=== PATIENT | female | born 1950 | race Hispanic/Latino ===

== ENCOUNTER 2018-07-28 18:13 | Inpatient (IN) | payer MEDICARE ==
[2018-07-28 18:14] VITALS: BMI 27.1
[2018-07-28] MEDS ORDERED: Sodium Chloride 0.9% 1,000 ML IV STA (19:45)
--- NOTE | 2018-07-28 19:46 | ED PDOC ---
Arrival/HPI - General Chief Complaint: Abdominal Pain Time Seen by Provider: 07/28/18 19:22 Historian: Patient - History of Present Illness Narrative History of Present Illness (Text): 07/28/18 19:34 67 year old female, with past medical history of colitis and GERD, presents to the Emergency Department complaining of upper abdominal discomfort since this morning. Patient informs gradual onset of symptoms after eating a bagel and has been non-radiating and constant since then.Patient denies associated nausea but denies any vomiting, fever or chills. Patient denies any chest pain, shortness of breath, neck pain, back pain, headache, dizziness, or any other complaints. Time/Duration: 4-6 hours Symptom Course: Unchanged Quality: Aching Activities at Onset: Eating Context: Home Past Medical History - Provider Review Nursing Documentation Reviewed: Yes - Infectious Disease Hx of Infectious Diseases: None - Reproductive Menopause: Yes - Cardiac Hx Cardiac Disorders: No Hx Pacemaker: No - Pulmonary Hx Asthma: Yes - Neurological Hx Paralysis: No - Hematological/Oncological Hx Blood Transfusions: No - Musculoskeletal/Rheumatological Hx Arthritis: Yes - Gastrointestinal Hx Gastroesophageal Reflux: Yes - Psychiatric Hx Emotional Abuse: No Hx Physical Abuse: No Hx Substance Use: No - Anesthesia Hx Anesthesia Reactions: No Hx Malignant Hyperthermia: No - Suicidal Assessment Feels Threatened In Home Enviroment: No Family/Social History - Physician Review Nursing Documentation Reviewed: Yes Family/Social History: No Known Family HX Smoking Status: Unknown If Ever Smoked Hx Alcohol Use: No Hx Substance Use: No Hx Substance Use Treatment: No Allergies/Home Meds Allergies/Adverse Reactions: Allergies No Known Allergies Allergy (Verified 05/19/12 13:43) Home Medications: Home Meds Medication Instructions Recorded Confirmed Montelukast [Singulair] 10 mg PO QPM 05/19/12 07/28/18 Alprazolam [Xanax] 0.5 mg PO BID 02/28/17 07/28/18 Dexlansoprazole [Dexilant] 60 mg PO DAILY 02/28/17 07/28/18 Fluticasone/Salmeterol 250/50 1 puff IH Q12 02/28/17 02/28/17 [Advair Diskus] Metoprolol Tartrate [Lopressor] 50 mg PO DAILY 02/28/17 07/28/18 Review of Systems - Physician Review All systems were reviewed & negative as marked: Yes - Review of Systems Constitutional: absent: Fevers Respiratory: absent: SOB, Cough Cardiovascular: absent: Chest Pain, BOYCE Gastrointestinal: Abdominal Pain, Nausea. absent: Diarrhea, Vomiting Musculoskeletal: absent: Back Pain, Neck Pain Neurological: absent: Headache, Dizziness Physical Exam Vital Signs Reviewed: Yes Vital Signs Temp Pulse Resp BP Pulse Ox 07/28/18 18:58 97.8 F 80 18 135/73 99 Temperature: Afebrile Blood Pressure: Normal Pulse: Regular Respiratory Rate: Normal Appearance: Positive for: Well-Appearing, Non-Toxic, Comfortable Pain Distress: None Mental Status: Positive for: Alert and Oriented X 3 - Systems Exam Head: Present: Atraumatic, Normocephalic Pupils: Present: PERRL Extroacular Muscles: Present: EOMI Conjunctiva: Present: Normal Mouth: Present: Moist Mucous Membranes Neck: Present: Normal Range of Motion Respiratory/Chest: Present: Clear to Auscultation, Good Air Exchange. No: Respiratory Distress, Accessory Muscle Use Cardiovascular: Present: Regular Rate and Rhythm, Normal S1, S2. No: Murmurs Abdomen: No: Tenderness, Distention, Peritoneal Signs Back: Present: Normal Inspection Upper Extremity: Present: Normal Inspection. No: Cyanosis, Edema Lower Extremity: Present: Normal Inspection. No: Edema Neurological: Present: GCS=15, CN II-XII Intact, Speech Normal Skin: Present: Warm, Dry, Normal Color. No: Rashes Psychiatric: Present: Alert, Oriented x 3, Normal Insight, Normal Concentration Medical Decision Making ED Course and Treatment: 07/28/18 19:34 Impression: 67 year old female presents to the Emergency Department complaining of upper abdominal discomfort. Plan: -- EKG -- Labs -- Chest X-ray -- Reassess and disposition Prior Visits: Notes and results from previous visits were reviewed. Progress Notes: Reviewed EKG, NSR at 74 bpm. Inferior infarct. No acute changes. 07/28/18 21:05 Chest X-Ray reviewed, shows no acute processes. 07/28/18 23:25 US Gallbladder and Pancreas Impression: No acute findings. Fatty infiltration of the liver. 07/29/18 02:16 CT Abdomen and Pelvis Impression: Left lower lobe airspace disease, most probably pneumonia. Terminal ileitis without perforation or pneumatosis intestinalis. Narrowing of the lumen of the terminal ileum secondary to inflammatory neutral changes. Associated secondary partial small bowel obstruction and/or ileus with dilated fluid filled small bowel to the right lower quadrant. Minimal amount of reactive free fluid in the pelvis. 07/29/18 02:[address] Lewis, who is aware and agrees with plan. Accepts pt in to his service. Pt will be admitted to [facility] for partial small bowel obstruction, ileitis. Requests Dr. Portillo on consult. vice president mission integration notified. - Lab Interpretations I have reviewed the lab results: Yes - RAD Interpretation Radiology Orders: 07/28/18 19:34 CHEST PORTABLE [RAD] Stat Intelligence Operations Specialist: ED Physician, Radiologist - EKG Interpretation Interpreted by ED Physician: Yes Type: 12 lead EKG - Scribe Statement The provider has reviewed the documentation as recorded by the Scribe Ting Bledsoe. All medical record entries made by the Scribe were at my direction and personally dictated by me. I have reviewed the chart and agree that the record accurately reflects my personal performance of the history, physical exam, medical decision making, and the department course for this patient. I have also personally directed, reviewed, and agree with the discharge instructions and disposition. Disposition/Present on Arrival - Present on Arrival Any Indicators Present on Arrival: No History of DVT/PE: No History of Uncontrolled Diabetes: No Urinary Catheter: No History of Decub. Ulcer: No History Surgical Site Infection Following: None - Disposition Have Diagnosis and Disposition been Completed?: Yes Diagnosis: Partial small bowel obstruction, Ileitis Disposition: HOSPITALIZED Disposition Time: 02:35 Patient Plan: Admission Condition: STABLE Forms: [employer] ([place])
[2018-07-28 20:47] LABS: HEMOGLOBIN 9.8 g/dL (12.0-16.0); MEAN CELL VOLUME 90.3 fl (80.0-105.0); MEAN PLATELET VOLUME 8.8 fl (7.0-11.0); RBC 3.5 10^6/uL (3.5-6.1); RED CELL DISTRIBUTION WIDTH 14.3 % (11.5-14.5); WHITE BLOOD COUNT 13.5 10^3/ul (4.5-11.0)
[2018-07-28 21:00] LABS: ALB/GLOB RATIO 1.1 (1.1-1.8); ALBUMIN 4.1 g/dL (3.0-4.8); ALT/SGPT 21 U/L (7-56); AST/SGOT 34 U/L (14-36); BLOOD UREA NITROGEN 14 mg/dL (7-21); CALCIUM 9.3 mg/dL (8.4-10.5); GFR NON-AFRICAN AMERICAN > 60; LIPASE 59 U/L (23-300)
[2018-07-29] MEDS ORDERED: Iohexol 350 MG/100 ML VIAL ONE (00:10)
[2018-07-29] MEDS ORDERED: Sodium Chloride 0.9% 1,000 ML IV SCH (00:15)
[2018-07-29] MEDS ORDERED: metroNIDAZOLE IV 500 mg/100 ml 500 MG/100 ML BAG IVPB STA (02:30)
[2018-07-29] MEDS ORDERED: cefTRIAXone 1 gm 1 GM/100 ML BAG IV STA (02:30)
[2018-07-29] MEDS ORDERED: Sodium Chloride 0.9% 1,000 ML IV STA (02:33)
--- NOTE | 2018-07-29 03:58 | CP.PCM.HP ---
History of Present Illness - History of Present Illness History of Present Illness: Juan Teixeira, PGY-1 History and Physical for Dr Joshua Del Valle CC: Abdominal Pain HPI: Ms Thorne is a 67 F with a PMHx of colitis, GERD, Arthritis and asthma who presents with epigastric abdominal pain. Patient describes this as crampy spasms that began after eating a bagel at 11 am yesterday. Patient has noted weakness and a poor appetite over last few weeks, but thought it would pass on its own. Patient notices occasional bloating, which she uses OTC medications for relief. Patient endorses that she gets an endoscopy and colonoscopy every 3 years as her mother had colon cancer. Patient denies fever, chills, shortness of breath, chest pain, headaches, dizziness, nausea, vomiting, recent travel, sick contacts or recent unintentional weight loss. PMHx: colitis, GERD, Arthritis and asthma PSHX: deviated septum repair All: NKDA Social: dnies ETOH tobacco and substance abuse Fam hx: mom had colon CA Meds: Dexilent 60 mg, Lopressor 50 mg, Singulair, Xanax 0.5, Flovent and Ventolin. Present on Admission - Present on Admission Any Indicators Present on Admission: No Review of Systems - Review of Systems Review of Systems: 12 point ROS completed and negative as described in HPI. Past Patient History - Infectious Disease Hx of Infectious Diseases: None - Past Social History Smoking Status: Unknown If Ever Smoked - CARDIAC Hx Cardiac Disorders: No Hx Pacemaker: No - PULMONARY Hx Asthma: Yes - NEUROLOGICAL Hx Paralysis: No - HEMATOLOGICAL/ONCOLOGICAL Hx Blood Transfusions: No - MUSCULOSKELETAL/RHEUMATOLOGICAL Hx Arthritis: Yes - GASTROINTESTINAL Hx Gastroesophageal Reflux: Yes - PSYCHIATRIC Hx Emotional Abuse: No Hx Physical Abuse: No Hx Substance Use: No - SURGICAL HISTORY Hx Surgeries: Yes - ANESTHESIA Hx Anesthesia Reactions: No Hx Malignant Hyperthermia: No Meds Allergies/Adverse Reactions: Allergies Allergy/AdvReac Type Severity Reaction Status Date / Time No Known Allergies Allergy Verified 05/19/12 13:43 Physical Exam - Constitutional Appears: Well, Non-toxic, No Acute Distress - Head Exam Head Exam: ATRAUMATIC, NORMAL INSPECTION, NORMOCEPHALIC - Eye Exam Eye Exam: EOMI, Normal appearance Pupil Exam: PERRL - ENT Exam ENT Exam: Mucous Membranes Moist - Neck Exam Neck exam: Positive for: Normal Inspection - Respiratory Exam Respiratory Exam: Clear to Auscultation Bilateral, NORMAL BREATHING PATTERN. absent: Rales, Rhonchi, Wheezes - Cardiovascular Exam Cardiovascular Exam: REGULAR RHYTHM, +S1, +S2 - GI/Abdominal Exam GI & Abdominal Exam: Hypoactive Bowel Sounds, Soft. absent: Distended, Tenderness - Back Exam Back exam: absent: CVA tenderness (L), CVA tenderness (R) - Neurological Exam Neurological exam: Alert, Oriented x3 - Psychiatric Exam Psychiatric exam: Normal Affect, Normal Mood - Skin Skin Exam: Dry, Erythema, Normal Color, Warm Results - Vital Signs Recent Vital Signs: Last Vital Signs Temp 97.7 F 07/29/18 03:03 Pulse 84 07/29/18 03:03 Resp 18 07/29/18 03:03 BP 104/53 L 07/29/18 03:03 Pulse Ox 95 07/29/18 03:03 - Labs Result Diagrams: 07/28/18 20:25 07/28/18 20:25 Labs: Laboratory Results - last 24 hr 07/28/18 07/28/18 20:25 20:25 WBC 13.5 H D RBC 3.50 Hgb 9.8 L Hct 31.6 L MCV 90.3 MCH 28.0 MCHC 31.0 RDW 14.3 Plt Count 496 H MPV 8.8 Sodium 144 Potassium 4.1 Chloride 106 Carbon Dioxide 28 Anion Gap 14 BUN 14 Creatinine 0.8 Est GFR ( Amer) > 60 Est GFR (Non-Af Amer) > 60 Random Glucose 109 Calcium 9.3 Total Bilirubin 0.3 AST 34 ALT 21 Alkaline Phosphatase 89 Total Protein 7.7 Albumin 4.1 Globulin 3.6 Albumin/Globulin Ratio 1.1 Lipase 59 Assessment & Plan - Assessment and Plan (Free Text) Assessment: 67 year old female with PMHx of arthritis, GERD, colitis and asthma who pres ents with partial small bowel obstruction and ileitis. Plan: Small Bowel Obstruction partial, not full GI consult placed - Dr. Lewis - recommendations appreciated Gen Surgery consult placed- Dr. Reyes- recommendations appreciated IVF LR@ 75 cc/hr IV Protonix, Reglan and Zofran Cefepime 100 BID IVP and FLagyl 500 mg q8h IVP f/u AM labs f/u obstructive series f/u blood cultures Reviewed EKG, NSR at 74 bpm. Inferior infarct. No acute changes. Chest X-Ray reviewed, shows no acute processes. US Gallbladder and Pancreas Impression: No acute findings. Fatty infiltration of the liver. CT Abdomen and Pelvis Impression: Left lower lobe airspace disease, most probably pneumonia. Terminal ileitis without perforation or pneumatosis intestinalis. Narrowing of the lumen of the terminal ileum secondary to inflammatory neutral changes. Associated secondary partial small bowel obstruction and/or ileus with dilated fluid filled small bowel to the right lower quadrant. Minimal amount of reactive free fluid in the pelvis. Asthma: c/w Brovana, Montelukast and pulmicort GI/DVT ppx: Protonix 40 mg IV SCDs Case discussed and plan reviewed with Dr. Lewis, attending. Juan Teixeira, PGY-1
--- NOTE | 2018-07-29 04:14 | CP.PCM.CON ---
History of Present Illness - History of Present Illness History of Present Illness: General Surgery consult note for Dr. Reyes consulted for Small bowel Obstruction HPI: Patient is a 67 yr old female with pmh arthritis, colitis and asthma who presented to [facility] on 07/28 c/o mild nausea (no vomiting), crampy abdominal pain and decreased appetite after eating a bagel at 11 am that morning. Patient states that her last BM was 07/28 in the am prior to the bagel and was normal with no blood or loose stool. She denies ever having had emesis since the symptoms began. Patient has a family history of colon cancer in her mother and therefore gets a colonoscopy every three years for cancer screening. Her last colonoscopy was 3 years ago and was normal. Patient otherwise denies PAL, nausea, vomiting, Fevers, chills, SOB, dysuria, extremity pain. PMHx: colitis, GERD, Arthritis and asthma PSHX: deviated nasal septum repair All: NKDA Social: denies ETOH tobacco and substance abuse Fam hx: colon CA (mother) Meds: Dexilent 60 mg, Lopressor 50 mg, Singulair, Xanax 0.5, Flovent and Ventolin. Review of Systems - Review of Systems All systems: reviewed and no additional remarkable complaints except (as per HPI) Past Patient History - Infectious Disease Hx of Infectious Diseases: None - Past Social History Smoking Status: Unknown If Ever Smoked - CARDIAC Hx Cardiac Disorders: No Hx Pacemaker: No - PULMONARY Hx Asthma: Yes - NEUROLOGICAL Hx Paralysis: No - HEMATOLOGICAL/ONCOLOGICAL Hx Blood Transfusions: No - MUSCULOSKELETAL/RHEUMATOLOGICAL Hx Arthritis: Yes - GASTROINTESTINAL Hx Gastroesophageal Reflux: Yes - PSYCHIATRIC Hx Emotional Abuse: No Hx Physical Abuse: No Hx Substance Use: No - SURGICAL HISTORY Hx Surgeries: Yes - ANESTHESIA Hx Anesthesia Reactions: No Hx Malignant Hyperthermia: No Meds Allergies/Adverse Reactions: Allergies Allergy/AdvReac Type Severity Reaction Status Date / Time No Known Allergies Allergy Verified 05/19/12 13:43 - Medications Medications: Current Medications Arformoterol Tartrate (Brovana) 15 mcg IH [id number] KYAW Budesonide (Pulmicort Respules) 0.5 mg IH [id number] Lactated Ringer's (Lactated Ringer's) 1,000 mls @ 75 mls/hr IV [id number] KYAW Metronidazole (Flagyl) 500 mg in 100 mls @ 100 mls/hr IVPB Q8 KYAW; Protocol Cefepime HCl (Maxipime 1gm) 1 gm in 100 mls @ 100 mls/hr IVPB Q12 KYAW; Protocol Metoclopramide HCl (Reglan) 10 mg IVP ACHS KYAW Montelukast Sodium (Singulair) 10 mg PO QPM KYAW Ondansetron HCl (Zofran Inj) 4 mg IVP Q8H PRN PRN Reason: Nausea/Vomiting Pantoprazole Sodium (Protonix Inj) 40 mg IVP DAILY KYAW Physical Exam - Constitutional Appears: Well, Non-toxic, No Acute Distress - Head Exam Head Exam: ATRAUMATIC, NORMOCEPHALIC - Eye Exam Eye Exam: EOMI - ENT Exam ENT Exam: Mucous Membranes Moist - Respiratory Exam Respiratory Exam: NORMAL BREATHING PATTERN - Cardiovascular Exam Cardiovascular Exam: REGULAR RHYTHM - GI/Abdominal Exam GI & Abdominal Exam: Soft, Tenderness (mild tenderness with no guarding RLQ). absent: Distended, Firm, Guarding, Rigid - Extremities Exam Extremities exam: Positive for: pedal pulses present. Negative for: calf tenderness, pedal edema, tenderness - Neurological Exam Neurological exam: Alert, Oriented x3 - Psychiatric Exam Psychiatric exam: Normal Affect, Normal Mood - Skin Skin Exam: Dry, Intact, Normal Color, Warm Results - Vital Signs Recent Vital Signs: Last Vital Signs Temp 97.7 F 07/29/18 03:03 Pulse 84 07/29/18 03:03 Resp 18 07/29/18 03:03 BP 104/53 L 07/29/18 03:03 Pulse Ox 95 07/29/18 03:03 - Labs Result Diagrams: 07/30/18 06:40 07/30/18 06:40 Labs: Laboratory Results - last 24 hr 07/28/18 07/28/18 20:25 20:25 WBC 13.5 H D RBC 3.50 Hgb 9.8 L Hct 31.6 L MCV 90.3 MCH 28.0 MCHC 31.0 RDW 14.3 Plt Count 496 H MPV 8.8 Sodium 144 Potassium 4.1 Chloride 106 Carbon Dioxide 28 Anion Gap 14 BUN 14 Creatinine 0.8 Est GFR ( Amer) > 60 Est GFR (Non-Af Amer) > 60 Random Glucose 109 Calcium 9.3 Total Bilirubin 0.3 AST 34 ALT 21 Alkaline Phosphatase 89 Total Protein 7.7 Albumin 4.1 Globulin 3.6 Albumin/Globulin Ratio 1.1 Lipase 59 Assessment & Plan - Assessment and Plan (Free Text) Assessment: 67 yr old female w/ Small Bowel Obstruction Plan: Partial small Bowel obstruction: * c/w IV fluid resuscitation * c/w antibiotics * NPO except meds * patient refusing NGT at this time will revisit if she becomes nauseous or has emesis * FOBT ordered * GI Dr. Lewis consulted recs appreciated Prophylaxis * pepcid * scd's Discussed with Dr. Ho, Tia Dailey, PGY 1 - Date & Time Date: 07/29/18 Time: 04:12
[2018-07-29] MEDS: Lactated Ringer's 1,000 ML IV SCH (04:19)
[2018-07-29] MEDS ORDERED: Influenza Vaccine 60 mcg/0.5 mL SYR (4YR UP) IM ONE (04:31)
[2018-07-29] MEDS ORDERED: Pneumococcal 23-Valent Vaccine IM ONE (04:31)
[2018-07-29] MEDS: metroNIDAZOLE IV 500 mg/100 ml 500 MG/100 ML BAG IVPB SCH ×3 (06:35→22:36)
[2018-07-29 07:07] LABS: BASO # 0.03 K/mm3 (0.0-2.0); BASO % 0.3 % (0.0-3.0); EOS # 0.1 (0.0-0.7); EOS % 1.1 % (1.5-5.0); GRAN # 6.94 (1.4-6.5); GRAN % 71.7 % (50.0-68.0); HEMOGLOBIN 8.6 g/dL (12.0-16.0); LYMPH # 1.5 (1.2-3.4); LYMPH % 15.5 % (22.0-35.0); MEAN CELL VOLUME 89.4 fl (80.0-105.0); MEAN CORPUSCULAR HEMOGLOBIN 28.4 pg (25.0-35.0); MEAN CORPUSCULAR HGB CONC 31.7 g/dl (31.0-37.0); MEAN PLATELET VOLUME 8.7 fl (7.0-11.0); MONO # 1.1 (0.1-0.6); MONO % 11.4 % (1.0-6.0); RBC 3.03 10^6/uL (3.5-6.1); RED CELL DISTRIBUTION WIDTH 14.3 % (11.5-14.5); WHITE BLOOD COUNT 9.7 10^3/ul (4.5-11.0)
[2018-07-29] MEDS: Budesonide 0.5 mg/2 ml Inhal Susp UD IH SCH ×2 (07:20→21:00)
[2018-07-29] MEDS: Arformoterol 15 mcg/2 ml Inh Sol IH SCH ×2 (07:20→21:00)
[2018-07-29 07:36] LABS: ALBUMIN 3.2 g/dL (3.0-4.8); ALT/SGPT 28 U/L (7-56); AST/SGOT 30 U/L (14-36); BLOOD UREA NITROGEN 12 mg/dL (7-21); CALCIUM 8.4 mg/dL (8.4-10.5); GFR NON-AFRICAN AMERICAN > 60
[2018-07-29] MEDS ORDERED: Levalbuterol 1.25 MG/3 ML Inhal Soln UD IH SCH (08:00)
--- NOTE | 2018-07-29 08:20 | RAD ---
Date of service: 07/28/2018 HISTORY: abdominal discomfort COMPARISON: 01/28/2017 FINDINGS: LUNGS: No active pulmonary disease. PLEURA: No significant pleural effusion identified, no pneumothorax apparent. CARDIOVASCULAR: Normal. OSSEOUS STRUCTURES: No significant abnormalities. VISUALIZED UPPER ABDOMEN: Normal. OTHER FINDINGS: None. IMPRESSION: No active disease.
[2018-07-29 08:49] LABS: INR 1.03; PARTIAL THROMBOPLASTIN TIME 27.1 Seconds (25.1-36.5); PROTHROMBIN TIME 11.8 SECONDS (9.4-12.5)
[2018-07-29 08:56] LABS: HDL CHOLESTEROL 31 mg/dL (29-60); IRON 49 ug/dL (45-180)
[2018-07-29 09:05] LABS: % IRON SATURATION 12 % (20-55); TOTAL IRON BINDING CAPACITY 416 ug/dL (265-497)
[2018-07-29 09:07] LABS: LDL CHOLESTEROL 95 mg/dL (0-129)
[2018-07-29 09:16] LABS: FREE T4 0.91 ng/dL (0.78-2.19)
[2018-07-29] MEDS: Cefepime 1gm in NS 100ml 1 GM/100 ML BAG IVPB SCH ×2 (09:20→22:35)
--- NOTE | 2018-07-29 09:26 | RAD ---
Date of service: 07/29/2018 HISTORY: SBO COMPARISON: No prior. FINDINGS: BOWEL: Normal. No obstruction. No free air. BONES: Normal. OTHER FINDINGS: None. IMPRESSION: No active disease.
[2018-07-29 09:29] LABS: T3 1.41 ng/mL (0.97-1.69)
--- NOTE | 2018-07-29 09:39 | US ---
Date of service: 07/28/2018 HISTORY: upper abdominal pain COMPARISON: None. TECHNIQUE: Grayscale imaging of the right upper quadrant was performed. FINDINGS: LIVER: Measures 15.7 cm in length. There is diffuse increased echogenicity of the liver parenchyma. No mass. No intrahepatic bile duct dilatation. GALLBLADDER: There are no gallstones, wall thickening or pericholecystic fluid. The sonographic Rosenbaum's sign is negative. COMMON BILE DUCT: Measures 5.6 mm. No stones. No dilatation. PANCREAS: Unremarkable as visualized. No mass. No ductal dilatation. RIGHT KIDNEY: Measures 10.1 cm in length. Normal echogenicity. No calculus, mass, or hydronephrosis. AORTA: No aneurysmal dilatation. IVC: Unremarkable. OTHER FINDINGS: None . IMPRESSION: Diffuse increased echogenicity in the liver may reflect hepatic steatosis however parenchymal infectious/ inflammatory etiologies cannot be entirely excluded. Clinical and laboratory correlation is advised. No evidence of cholelithiasis or biliary dilatation. A preliminary report was provided by [employer].
--- NOTE | 2018-07-29 09:53 | CT ---
Date of service: 07/29/2018 PROCEDURE: CT Abdomen and Pelvis with contrast HISTORY: abdominal pain COMPARISON: None. TECHNIQUE: Contrast dose: 100 cc of Omni 350 Radiation dose: Total exam DLP = 692 mGy-cm. This CT exam was performed using one or more of the following dose reduction techniques: Automated exposure control, adjustment of the mA and/or kV according to patient size, and/or use of iterative reconstruction technique. FINDINGS: LOWER THORAX: There is an alveolar infiltrate in the left lower lobe consistent with pneumonia LIVER: Unremarkable. No gross lesion or ductal dilatation. GALLBLADDER AND BILE DUCTS: Unremarkable. PANCREAS: Unremarkable. No gross lesion or ductal dilatation. SPLEEN: Unremarkable. ADRENALS: Unremarkable. No mass. KIDNEYS AND URETERS: Unremarkable. No hydronephrosis. No solid mass. VASCULATURE: Unremarkable. No aortic aneurysm. BOWEL: There is mural thickening and enhancement in the terminal ileum consistent with inflammatory bowel disease such as Crohn's disease. There is also mild dilatation of the distal small bowel which is filled with fluid. There is also fluid in the colon. APPENDIX: Normal appendix. PERITONEUM: Unremarkable. No free fluid. No free air. LYMPH NODES: Unremarkable. No enlarged lymph nodes. BLADDER: Unremarkable. REPRODUCTIVE: Unremarkable. BONES: No acute fracture. OTHER FINDINGS: The report concurs with the preliminary [facility] report IMPRESSION: There is mural thickening and enhancement in the terminal ileum consistent with inflammatory bowel disease such as Crohn's disease. There is also mild dilatation of the distal small bowel which is filled with fluid. There is also fluid in the colon. Left lower lobe pneumonia
[2018-07-29] MEDS ORDERED: Fluticasone-Salmeterol 250-50mcg Diskus IH SCH (10:00)
--- NOTE | 2018-07-29 10:01 | CT ---
Date of service: 07/29/2018 PROCEDURE: CT Chest without contrast HISTORY: PNEUMONIA COMPARISON: None available. TECHNIQUE: Contiguous axial images were obtained through the chest without intravenous contrast enhancement. Sagittal and coronal reconstructions were performed. Radiation dose (DLP): 294 mGy-cm. This CT exam was performed using one or more of the following dose reduction techniques: Automated exposure control, adjustment of the mA and/or kV according to patient size, and/or use of iterative reconstruction technique. FINDINGS: LUNGS: There is an alveolar infiltrate at the left lung base posteriorly consistent with pneumonia. The remaining lung peñaloza are clear. There is some apical pleural parenchymal scarring MEDIASTINUM: Unremarkable thoracic aorta. No aneurysm. Normal sized heart. Main pulmonary artery unremarkable. No vascular congestion. No lymphadenopathy. Moderate coronary artery calcification PLEURA: No pleural fluid. No pneumothorax. BONES: No fracture. No destructive lesion. UPPER ABDOMEN: Grossly unremarkable. OTHER FINDINGS: None. IMPRESSION: There is an alveolar infiltrate at the left lung base posteriorly consistent with pneumonia. The remaining lung peñaloza are clear. There is some apical pleural parenchymal scarring
--- NOTE | 2018-07-29 10:03 | CON ---
DATE: 07/29/2018 HISTORY OF PRESENT ILLNESS: I saw Mrs. Thorne this morning. 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 The patient noted acute onset of upper abdominal discomfort with abdominal swelling several hours prior to admission. The patient had been doing fine with no major issues prior to symptom onset. There is no hematemesis or rectal bleeding. PHYSICAL EXAMINATION: VITAL SIGNS: I reviewed this patient's vital signs. HEENT: Significant for dry mouth. LUNGS: Clear to auscultation, apical. Decreased breath sounds, basilar. HEART: Regular rhythm. ABDOMEN: Mildly distended. She is tender in the epigastric area as well as the area of the right paraumbilical and somewhat in the area of the right lower quadrant as well. The left lower quadrant is mildly tender as well. The bowel sounds are irregular. LABORATORY DATA: I reviewed this patient's gallbladder ultrasound, was noncontributory with a normal common bile duct. Abdominal CT scan shows evidence of substantial amount of stool in the ascending colon and proximal transverse. There is evidence of some airspace disease in the left lower lobe of the lung. There appears to be some distal small bowel inflammatory changes plus what appears to be an ileus in the area of the right lower quadrant. I reviewed this patient's laboratory data, significant for 13,000 white count, and H and H. platelet count of 186. CMP noncontributory. OVERALL ASSESSMENT: A 67-year-old white female with history of colitis, currently off of therapy, previously which consisted of Lialda. The patient also has a history of acid reflux. Current complaints included acute onset of epigastric and some periumbilical pain with swallowing, acute onset. Review of radiology data indicates probable ileus, possibly due to significant stool in the ascending colon and transverse with possibly component of distal small bowel inflammatory disease. At bedside this morning, the patient feels more comfortable than on admission. She is currently on antibiotic therapy, which includes metronidazole and cefepime plus ondansetron. The patient will be evaluated by Surgery later on this morning as well as Dr. Lewis. David Lewis DO, PhD CHIARA
--- NOTE | 2018-07-29 11:52 | CARD ---
APPROVED REPORT Date of service: 07/28/2018 EKG Measurement Heart [id number] <Conclusion> Normal sinus rhythm Inferior infarct, age undetermined Abnormal ECG
[2018-07-29 12:23] LABS: FERRITIN 8.6 ng/mL
[2018-07-29 12:53] LABS: FOLATE > 20.0 ng/mL
[2018-07-29] MEDS: Levalbuterol 0.63 MG/3 ML Inhal Soln UD IH SCH ×3 (13:27→21:00)
--- NOTE | 2018-07-29 19:15 | HP ---
HISTORY OF PRESENT ILLNESS: The patient is a 67-year-old female who presented to the emergency room in the overnight hours from 07/28/2018, presented as a walk-in patient with complaining of abdominal pain since less than 24 hours. The patient denies any nausea or vomiting. The patient denies similar symptoms before. The patient denies any travel history. According to the ER physician evaluation, the patient complained of about upper abdominal and mid abdominal discomfort for the less than 24 hours, but more than 12 hours. The patient states that the symptoms started after eating a bagel and has been nonradiating and it is constant. The patient denies any vomiting, denies any nausea, denies any hemoptysis, denies any melena, denies any hematochezia. REVIEW OF SYSTEMS: A 13-system review was done, pertinent positive and negative dictated above. CODE STATUS: Full code. LIVING WILL ADVANCE DIRECTIVE: None. ALLERGIES: NONE. Height is 5 feet 7 inches. Weight is 165 pounds. Body mass index is 26. HOME MEDICATIONS: Singulair 10 mg, Lopressor 50 mg, DEXILANT 60 mg, Xanax 0.5 b.i.d., and Advair Diskus. SOCIAL HISTORY: The patient's substance abuse history according to the [employer] is negative for substance abuse, negative for alcohol, negative for smoking at present, probably positive for former smoker. MENSTRUAL HISTORY: Postmenopausal. PAST MEDICAL AND SURGICAL HISTORY: History of questionable COPD, history of hypertension, history of anxiety, history of questionable Crohn disease according to the patient's, history of endoscopy and colonoscopy done according to the patient, history of mild anemia. Past medical history is also significant for normal stress test done in 2016. Past medical history is also significant for osteopenia versus early osteoporosis. Past medical history is also significant for history of nonspecific colitis, history of questionable Crohn disease, history of colonoscopy done in 2014. History of gastritis, gastroesophageal reflux, gastric erosion, and questionable gastric ulcer. The patient's past medical history is also significant for arthritis, history of anxiety, history of questionable asthma versus chronic obstructive pulmonary disease. FAMILY HISTORY: Not available. OCCUPATIONAL HISTORY: The patient is not working and unemployed. Patient is seen in room 376. PHYSICAL EXAMINATION: VITAL SIGNS: T-max 97.8; heart rate 72, 85; blood pressure 125/73, 132/92, 104/53, 109/59; respirations 20; O2 sat 97% to 98%. HEENT: Head: Normocephalic, atraumatic. Pale conjunctivae. Skin appears to be pale. No oropharyngeal lesion. NECK: No neck rigidity. CHEST: Kyphosis. LUNGS: Show occasional rhonchi in the upper lung peñaloza anteriorly. CARDIOVASCULAR: S1 and S2, regular rhythm. Questionable soft systolic murmur in the left sternal border, right second intercostal space, and left second intercostal space. ABDOMEN: Soft. Positive bowel sounds. Mild epigastric periumbilical tenderness noted. No rebound tenderness noted. No costovertebral angle tenderness noted. GENITALIA: Female. RECTAL: Deferred. EXTREMITIES: Show no pitting edema, no calf tenderness, no Homans sign. MUSCULOSKELETAL: Sows a body mass index of 26. NEUROLOGIC: The patient is alert, awake, and oriented x3. Cranial nerves II through XII intact. Gait examination is not tested. No deficits noted. VASCULAR: Palpable pulses. DIAGNOSTIC DATA: Since admission was noted. WBC 13.5 and 9.7, hemoglobin and hematocrit 9.8 5.23 1.6 dropping to 8.6 and 27.1, platelets are 496 and 403. Granulocytes, 72% segs. PT/PTT normal 11.8 and 27.1. Chemistry is significant for CMP, LFTs are within normal limit. Iron saturation is low at 12. LFTs are normal. Cholesterol 148, LDL 95, HDL 31. TSH is elevated at 5.78. The patient was seen in the emergency room and the patient was evaluated in the emergency room by the ER physician. The was evaluated in the emergency room. The patient had a chest x-ray done and a CT abdomen and pelvis. Gallbladder ultrasound done, which was reviewed. The patient had a CT of the chest done, which was reviewed. The patient's gallbladder ultrasound, CT abdomen and pelvis, chest x-ray, CT scan of the chest, all reviewed. EKG was done in the emergency room, which is reviewed. IMPRESSION: 1. Abdominal pain, etiology undetermined. 2. Partial small bowel obstruction and ileitis. 3. Possible hepatic steatosis. 4. Mild hepatomegaly. 5. Left lower lobe alveolar infiltrate and pneumonia. 6. Terminal ileal mural thickening consistent with inflammatory bowel disease, possibly Crohn disease with mild dilatation of the distal small bowel filled with fluid and colonic fluid. 7. Left lower lobe pneumonia with apical pleural parenchymal scarring. 8. Possible abnormal EKG with age indeterminate inferior infarct. 9. History of colitis and gastroesophageal reflux. 10. History of being treated Lialda as per Gastroenterology. 11. Normocytic anemia. 12. Granulocytosis. 13. Questionable and possible hypothyroidism. PLAN: At this time, the patient has been ordered iron studies, serial labs. The patient has been requested Gastroenterology and Surgical consultation. The patient will be ordered transfusion of at least 1 unit of PRBC since her hemoglobin has dropped from her baseline hemoglobin. The patient is to be continued on nebulizer medications. The patient is on empiric IV antibiotic, Flagyl 500 IV every 8 hours, lactated Ringer IV fluid 75 mL an hour. The patient is on Lopressor 50 daily, Maxipime 1 g IV every 12 hours, Protonix 40 mg IV daily, Pulmicort nebulizer 0.5 mg nebulizer every 12 hours, Reglan 10 mg IV every 6 hours, Singulair 10 mg daily. This patient is started on Synthroid 25 mcg daily, Tylenol p.r.n., Xanax 0.5 b.i.d. p.r.n., Xopenex nebulizer 0.63 mg every 6 hours, Zofran 4 mg IV every 4 hours p.r.n., incentive spirometry, oxygen 2 L nasal cannula. The patient has been ordered SCDs, SAW stockings, out of bed. The patient has been updated about her condition, diagnosis, need for hospitalization, need for further diagnostic therapeutic intervention, need for further evaluation by Gastroenterology and Surgery was advised to the patient. At present, the patient's further management will be dependent upon the patient's clinical condition, hemodynamic status, and as per the patient's response to therapeutic intervention, as per the patient's diagnostic test results, and as per recommendation by all the physicians involved. The patient at present will be continued on the above therapeutic intervention. The patient's further management will be dependent upon the above. Dictated and electronically signed, not read. Jayesh Lewis MD
[2018-07-30] MEDS: Levalbuterol 0.63 MG/3 ML Inhal Soln UD IH SCH ×4 (02:30→21:38)
[2018-07-30] MEDS: Levothyroxine 25 MCG TAB PO SCH (06:40)
[2018-07-30] MEDS: metroNIDAZOLE IV 500 mg/100 ml 500 MG/100 ML BAG IVPB SCH ×3 (06:40→21:42)
[2018-07-30 07:20] LABS: BASO # 0.05 K/mm3 (0.0-2.0); BASO % 0.7 % (0.0-3.0); EOS # 0.1 (0.0-0.7); GRAN # 4.59 (1.4-6.5); HEMOGLOBIN 9.3 g/dL (12.0-16.0); LYMPH # 1.3 (1.2-3.4); LYMPH % 19.5 % (22.0-35.0); MEAN CORPUSCULAR HEMOGLOBIN 28.5 pg (25.0-35.0); MEAN CORPUSCULAR HGB CONC 32.1 g/dl (31.0-37.0); MEAN PLATELET VOLUME 8.9 fl (7.0-11.0); MONO # 0.7 (0.1-0.6); MONO % 10.8 % (1.0-6.0); RBC 3.26 10^6/uL (3.5-6.1); WHITE BLOOD COUNT 6.9 10^3/ul (4.5-11.0)
[2018-07-30] MEDS: Arformoterol 15 mcg/2 ml Inh Sol IH SCH ×2 (07:27→21:35)
[2018-07-30] MEDS: Budesonide 0.5 mg/2 ml Inhal Susp UD IH SCH ×2 (07:27→21:36)
[2018-07-30 07:46] LABS: ALB/GLOB RATIO 1.1 (1.1-1.8); ALBUMIN 3.3 g/dL (3.0-4.8); ALT/SGPT 13 U/L (7-56); AST/SGOT 32 U/L (14-36); BILIRUBIN,DIRECT 0.2 mg/dL (0.0-0.4); BLOOD UREA NITROGEN 4 mg/dL (7-21); CALCIUM 8.6 mg/dL (8.4-10.5); GFR NON-AFRICAN AMERICAN > 60
[2018-07-30] MEDS: Cefepime 1gm in NS 100ml 1 GM/100 ML BAG IVPB SCH ×2 (09:59→21:42)
--- NOTE | 2018-07-30 10:02 | RAD ---
Date of service: 07/30/2018 HISTORY: Partial small-bowel obstruction. COMPARISON: No prior. FINDINGS: BOWEL: Normal. No obstruction. No free air. BONES: Normal. OTHER FINDINGS: None. IMPRESSION: No acute findings related to/accounting for the clinical presentation. No significant interval change compared to the prior examination(s).
--- NOTE | 2018-07-30 11:28 | PN ---
DATE: 07/30/2018 SUBJECTIVE: I examined Ms. Thorne this morning. She is a 67-year-old female known to the consult with past medical history of colitis and acid reflux. Patient noted at the bedside this morning that the manner of abdominal discomfort and nausea has subsided substantially. The abdomen has decompressed somewhat as well. There is no hematemesis or rectal bleeding. PHYSICAL EXAMINATION: VITAL SIGNS: I reviewed this patient's vital signs. HEENT: Significant for dry mouth only. LUNGS: Increased breath sounds at the base, otherwise clear. HEART: Regular rhythm. ABDOMEN: Softer, less distended. Still exhibiting some tenderness in the area of the epigastric area. The discomfort she had in the right paraumbilical and the right lower quadrant has dissipated, but she is web press roll tender in the area of the left lower quadrant. LABORATORY DATA: I reviewed the laboratory data from yesterday which indicates decrease in white count as well as decrease in H and H, probably dilutional as well. CMP noncontributory. Results of the chest CT indicate small infiltrate in the left lower lung base consistent with pneumonia. I reviewed the note of Dr. Lewis. ASSESSMENT: This is a 67-year-old white female with complaints of nausea, vomiting, abdominal pain, abdominal distention, probably secondary to some degree of fecal impaction in the ascending colon as well as transverse. Patient had a shift in pain pattern, probably due to movement of stool throughout colon. Again, the abdomen is more decompressed today relative to yesterday, tenderness is less as well. She is able to handle small volume of clears without problem. Patient requested due to constipation issues, laxative, I will order two Fleet enemas for today. Patient is currently on antibiotic therapy, which includes cefepime as well as metronidazole. Because of anemia diet, Dr. Lewis has placed her on Venofer. She was placed on Lactated Ringer's. David Lewis DO, PhD CHIARA
--- NOTE | 2018-07-30 11:49 | CP.PCM.PN ---
Subjective - Date & Time of Evaluation Date of Evaluation: 07/30/18 Time of Evaluation: 11:43 - Subjective Subjective: General surgery progress note for Dr. Reyes Patient seen and examined at bedside. No acute events overnight. Patient states abdominal pain and nausea have improved. She denies fevers, chills, shortness of breath, chest pain, or any other complaints at this time. Objective - Vital Signs/Intake and Output Vital Signs (last 24 hours): Temp Pulse Resp BP Pulse Ox 97.8 F 79 20 115/59 L 98 07/30/18 06:00 07/30/18 06:00 07/30/18 06:00 07/30/18 06:00 07/30/18 06:00 Intake and Output: 07/30/18 07/30/18 06:59 18:59 Intake Total 1310 Balance 1310 - Medications Medications: Current Medications Acetaminophen (Tylenol 325mg Tab) 650 mg PO Q6 PRN PRN Reason: TEMP>=99.5F Acetaminophen (Tylenol 650 Mg Supp) 650 mg RC Q6H PRN PRN Reason: TEMP>=99.5F Alprazolam (Xanax) 0.5 mg PO BID PRN; Protocol PRN Reason: Anxiety Last Admin: 07/29/18 23:47 Dose: 0.5 mg Arformoterol Tartrate (Brovana) 15 mcg IH [id number] Last Admin: 07/30/18 07:27 Dose: 15 mcg Budesonide (Pulmicort Respules) 0.5 mg IH [id number] [id number] Last Admin: 07/30/18 07:27 Dose: 0.5 mg Lactated Ringer's (Lactated Ringer's) 1,000 mls @ 75 mls/hr IV .[id number] Last Admin: 07/29/18 04:19 Dose: 75 mls/hr Metronidazole (Flagyl) 500 mg in 100 mls @ 100 mls/hr IVPB Q8 [facility]; Protocol Last Admin: 07/30/18 06:40 Dose: 100 mls/hr Cefepime HCl (Maxipime 1gm) 1 gm in 100 mls @ 100 mls/hr IVPB Q12 [facility]; Protocol Last Admin: 07/30/18 09:59 Dose: 100 mls/hr Iron Sucrose 200 mg/ Sodium (Chloride) 110 mls @ 110 mls/hr IVPB DAILY [facility] Stop: 08/02/18 10:59 Last Admin: 07/30/18 09:58 Dose: 110 mls/hr Levalbuterol HCl (Xopenex) 0.63 mg IH [id number] [facility] Last Admin: 07/30/18 07:27 Dose: 0.63 mg Levothyroxine Sodium (Synthroid) 25 mcg PO 0600 [facility] Last Admin: 07/30/18 06:40 Dose: 25 mcg Metoclopramide HCl (Reglan) 10 mg IVP Q6H [facility] Last Admin: 07/30/18 08:17 Dose: 10 mg Metoprolol Tartrate (Lopressor) 50 mg PO DAILY [facility] Last Admin: 07/30/18 09:57 Dose: 50 mg Montelukast Sodium (Singulair) 10 mg PO QPM [facility] Last Admin: 07/29/18 19:36 Dose: 10 mg Ondansetron HCl (Zofran Inj) 4 mg IVP Q4H PRN PRN Reason: Nausea/Vomiting Pantoprazole Sodium (Protonix Inj) 40 mg IVP DAILY [facility] Last Admin: 07/30/18 09:57 Dose: 40 mg - Labs Labs: 07/30/18 06:40 07/30/18 06:40 PT 11.8 SECONDS (9.4-12.5) 07/29/18 08:20 INR 1.03 07/29/18 08:20 APTT 27.1 Seconds (25.1-36.5) 07/29/18 08:20 - Constitutional Appears: Well, Non-toxic, No Acute Distress - Head Exam Head Exam: ATRAUMATIC, NORMOCEPHALIC - Eye Exam Eye Exam: Normal appearance - ENT Exam ENT Exam: Mucous Membranes Moist - Respiratory Exam Respiratory Exam: NORMAL BREATHING PATTERN. absent: Respiratory Distress - Cardiovascular Exam Cardiovascular Exam: RRR. absent: Bradycardia, Tachycardia - GI/Abdominal Exam GI & Abdominal Exam: Soft. absent: Distended, Firm, Guarding, Tenderness - Extremities Exam Extremities Exam: Normal Inspection - Neurological Exam Neurological Exam: Alert, Awake, Oriented x3 - Psychiatric Exam Psychiatric exam: Normal Affect, Normal Mood - Skin Skin Exam: Dry, Intact, Normal Color, Warm Assessment and Plan - Assessment and Plan (Free Text) Assessment: Patient is a 67 yr old female w/ pmh GERD arthritis and asthma presenting with partial small bowel obstruction and ileitis on CT scan. Plan: - Start liquid diet today and see if patient can tolerate - Monitor bowel movements - Continue with IV antibiotics - Antiemetics Case discussed with Dr. Eric Lovell PGY-1
[2018-07-31] MEDS: Levalbuterol 0.63 MG/3 ML Inhal Soln UD IH SCH ×4 (02:01→19:41)
[2018-07-31] MEDS: metroNIDAZOLE IV 500 mg/100 ml 500 MG/100 ML BAG IVPB SCH ×3 (05:49→22:33)
[2018-07-31] MEDS: Levothyroxine 25 MCG TAB PO SCH (05:50)
[2018-07-31 07:32] LABS: BASO # 0.04 K/mm3 (0.0-2.0); BASO % 0.5 % (0.0-3.0); EOS # 0.3 (0.0-0.7); EOS % 3.6 % (1.5-5.0); GRAN # 6.19 (1.4-6.5); GRAN % 72.2 % (50.0-68.0); HEMOGLOBIN 8.9 g/dL (12.0-16.0); LYMPH # 1.2 (1.2-3.4); LYMPH % 13.9 % (22.0-35.0); MEAN CELL VOLUME 89.2 fl (80.0-105.0); MEAN CORPUSCULAR HEMOGLOBIN 28.3 pg (25.0-35.0); MEAN CORPUSCULAR HGB CONC 31.7 g/dl (31.0-37.0); MEAN PLATELET VOLUME 8.9 fl (7.0-11.0); MONO # 0.8 (0.1-0.6); MONO % 9.8 % (1.0-6.0); RBC 3.15 10^6/uL (3.5-6.1); WHITE BLOOD COUNT 8.6 10^3/ul (4.5-11.0)
--- NOTE | 2018-07-31 07:38 | CP.PCM.PN ---
Subjective - Date & Time of Evaluation Date of Evaluation: 07/31/18 Time of Evaluation: 07:36 - Subjective Subjective: Surgery: Dr. Reyes Patient tolerating diet. 3x bowel movements yesterday post enema. No acute events overnight. Objective - Vital Signs/Intake and Output Vital Signs (last 24 hours): Temp Pulse Resp BP Pulse Ox 98 F 78 18 112/59 L 98 07/30/18 17:36 07/30/18 17:36 07/30/18 17:36 07/30/18 17:36 07/30/18 17:36 Intake and Output: 07/31/18 07/31/18 06:59 18:59 Intake Total 1560 Balance 1560 - Medications Medications: Current Medications Acetaminophen (Tylenol 325mg Tab) 650 mg PO Q6 PRN PRN Reason: TEMP>=99.5F Acetaminophen (Tylenol 650 Mg Supp) 650 mg RC Q6H PRN PRN Reason: TEMP>=99.5F Alprazolam (Xanax) 0.5 mg PO BID PRN; Protocol PRN Reason: Anxiety Last Admin: 07/30/18 22:53 Dose: 0.5 mg Arformoterol Tartrate (Brovana) 15 mcg IH [id number] [facility] Last Admin: 07/30/18 21:35 Dose: 15 mcg Budesonide (Pulmicort Respules) 0.5 mg IH [id number] [facility] Last Admin: 07/30/18 21:36 Dose: 0.5 mg Lactated Ringer's (Lactated Ringer's) 1,000 mls @ 75 mls/hr IV [id number] [facility] Last Admin: 07/29/18 04:19 Dose: 75 mls/hr Metronidazole (Flagyl) 500 mg in 100 mls @ 100 mls/hr IVPB Q8 [facility]; Protocol Last Admin: 07/31/18 05:49 Dose: 100 mls/hr Cefepime HCl (Maxipime 1gm) 1 gm in 100 mls @ 100 mls/hr IVPB Q12 [facility]; Protocol Last Admin: 07/30/18 21:42 Dose: 100 mls/hr Iron Sucrose 200 mg/ Sodium (Chloride) 110 mls @ 110 mls/hr IVPB DAILY [facility] Stop: 08/02/18 10:59 Last Admin: 07/30/18 09:58 Dose: 110 mls/hr Levalbuterol HCl (Xopenex) 0.63 mg IH [id number] [facility] Last Admin: 07/31/18 02:01 Dose: 0.63 mg Levothyroxine Sodium (Synthroid) 25 mcg PO 0600 [facility] Last Admin: 07/31/18 05:50 Dose: 25 mcg Metoclopramide HCl (Reglan) 10 mg IVP Q6H [facility] Last Admin: 07/31/18 01:59 Dose: 10 mg Metoprolol Tartrate (Lopressor) 50 mg PO DAILY [facility] Last Admin: 07/30/18 09:57 Dose: 50 mg Montelukast Sodium (Singulair) 10 mg PO QPM [facility] Last Admin: 07/30/18 17:24 Dose: 10 mg Ondansetron HCl (Zofran Inj) 4 mg IVP Q4H PRN PRN Reason: Nausea/Vomiting Pantoprazole Sodium (Protonix Inj) 40 mg IVP DAILY [facility] Last Admin: 07/30/18 09:57 Dose: 40 mg - Labs Labs: 07/31/18 07:20 07/30/18 06:40 PT 11.8 SECONDS (9.4-12.5) 07/29/18 08:20 INR 1.03 07/29/18 08:20 APTT 27.1 Seconds (25.1-36.5) 07/29/18 08:20 - Constitutional Appears: Non-toxic, No Acute Distress - Head Exam Head Exam: ATRAUMATIC, NORMOCEPHALIC - ENT Exam ENT Exam: Mucous Membranes Moist - Respiratory Exam Respiratory Exam: NORMAL BREATHING PATTERN. absent: Respiratory Distress - Cardiovascular Exam Cardiovascular Exam: REGULAR RHYTHM. absent: Tachycardia - GI/Abdominal Exam GI & Abdominal Exam: Soft. absent: Tenderness Assessment and Plan - Assessment and Plan (Free Text) Assessment: 67 y/o female w/ abdominal pain, resolved Plan: -most likely 2/2 constipation -no clinical evidence of obstruction -no surgical intervention at this time -reconsult as needed -d/w Dr. Reyes [facility] PGY4
[2018-07-31 07:53] LABS: ALBUMIN 3.3 g/dL (3.0-4.8); BLOOD UREA NITROGEN 3 mg/dL (7-21); CALCIUM 8.6 mg/dL (8.4-10.5); GFR NON-AFRICAN AMERICAN > 60
[2018-07-31] MEDS: Arformoterol 15 mcg/2 ml Inh Sol IH SCH ×2 (07:53→19:41)
[2018-07-31 07:54] LABS: ALT/SGPT 25 U/L (7-56); AST/SGOT 33 U/L (14-36); BILIRUBIN,DIRECT 0.2 mg/dL (0.0-0.4)
[2018-07-31] MEDS: Budesonide 0.5 mg/2 ml Inhal Susp UD IH SCH ×2 (07:54→19:41)
--- NOTE | 2018-07-31 09:28 | PN ---
DATE: 07/30/2018 LOCATION: The patient is seen in room 376, bed 2. SUBJECTIVE: The patient's overnight nurse's notes were reviewed. No melena. No hematochezia. No nausea, no vomiting, no diarrhea noted. The patient's last 12 to 24 hours nurse's notes were reviewed. No advance events were documented. The patient completed transfusion of 1 unit of PRBC. PHYSICAL EXAMINATION: VITAL SIGNS: T-max 97.2; pulse 68; blood pressure 104/62, 117/84; respirations 18; O2 sat 99%. HEENT: Head examination; normocephalic, atraumatic. HEENT examination shows pale conjunctivae. Anicteric sclerae. No oropharyngeal lesion. NECK: No neck rigidity. CHEST: Kyphosis. LUNGS: Shows positive rhonchi, creps left more than the right. CARDIOVASCULAR: S1, S2, regular rhythm. ABDOMEN: Soft. Positive bowel sound. No rebound tenderness. No guarding. No rigidity. No rebound tenderness. No costovertebral angle tenderness. GENITALIA: Female. RECTAL: Deferred. EXTREMITIES: Shows no pitting edema, no calf tenderness, no Homans' sign. NEUROLOGIC: The patient is alert, awake, oriented x3. Cranial nerves II through XII intact. Gait examination is not tested. VASCULAR: Palpable pulses. Cranial nerves II through XII limited. DIAGNOSTICS: From 07/30/2018, WBC count is normal. Hemoglobin/hematocrit has come up to 9.6/29. Platelets are within normal limit. On 07/30/2018; CMP, LFTs are within normal limits. Iron saturation is 12, ferritin is 8.6. IMPRESSION AND PLAN: 1. Resolved partial small bowel obstruction versus ileus. 2. Acute exacerbation of terminal ileitis versus Crohn's disease, inflammatory bowel disease. 3. Anemia, etiology undetermined. 4. Status post packed red blood cell transfusion. 5. Hypotension. 6. Iron-deficiency anemia. 7. History of Crohn's disease and colitis. 8. History of anemia with decreasing hemoglobin/hematocrit. 9. Left lower lobe community-acquired pneumonia. 10. Questionable constipation. Plan at this time, the patient was given a dose of Fleet's enema by Dr. Lewis. The patient's current medications and MAR was reviewed. The patient is on IV antibiotic, IV cefepime, IV Maxipime, and Flagyl. The patient is on bronchodilators and Xopenex nebulizer treatment. The patient has been ordered chest PT, incentive spirometry, oxygen 2 liters. The patient is on GI prophylaxis and DVT prophylaxis. The patient is to be continued on IV fluid as ordered. The patient is started on liquid diet by the surgical supervisor. The patient is seen by Gastroenterology yesterday, their recommendations noted. The patient seen by Surgery yesterday, their recommendations noted. The patient was started on liquid diet by the surgical supervisor today. Next, the patient has been ordered repeat labs for the morning, which will be reviewed when available and further therapeutic intervention will be addressed depending upon any abnormalities on patient's clinical, subjective and objective data. The patient's case also referred for Transitional Care Unit evaluation. The patient updated about her condition, diagnosis, test results, recommendation by all the physician involved in the care of the patient at length. All questions concerned answered, which she acknowledged and understand. In addition, the patient will be continued on IV Venofer for iron-deficiency anemia. At this time, the patient will be continued on above therapeutic intervention with continuation of IV antibiotics. Regarding the patient's need for further diagnostic and therapeutic Gastroenterology intervention including esophagogastroduodenoscopy and colonoscopy will be as per the discussion and decision of the Gastroenterology consultation. Dictated and electronically signed, not read. Jayesh Lewis MD
[2018-07-31] MEDS: Cefepime 1gm in NS 100ml 1 GM/100 ML BAG IVPB SCH ×2 (09:56→22:32)
[2018-07-31] MEDS: Potassium Chloride 20 mEq ER Tab PO SCH (09:59)
--- NOTE | 2018-07-31 11:26 | PN ---
DATE: 07/31/2018 SUBJECTIVE: I saw Ms. Thorne this morning today. She is a 67-year-old female with past medical history of colitis and acid reflux. Patient noted this morning, she has no abdominal pain. No nausea or vomiting. No diarrhea. Handled her diet, which was advanced to regular yesterday with no problem. There is no hematemesis or rectal bleeding. PHYSICAL EXAMINATION: VITAL SIGNS: I reviewed this patient's vital signs. HEENT: Noncontributory. LUNGS: Decreased breath sounds at bases, otherwise clear. HEART: Regular rate and rhythm. ABDOMEN: Soft, not distended. The tenderness noted in the left lower quadrant has dissipated. LABORATORY DATA: I reviewed the patient's laboratory data through yesterday. OVERALL ASSESSMENT: This is a 67-year-old white female admitted with complaints of nausea, vomiting, abdominal pain, abdominal distension probably due to a fecal impaction, noted on CT scan, which extend from the cecum through the proximal transverse colon. Symptoms have currently resolved. The obstructive series yesterday suggested no obstruction and the stool noted in the proximal colon had moved to the area of the descending as well as sigmoid. As indicated, in my note above, the patient is asymptomatic this morning. She is passing flatus and tolerating meals without problem. Patient is still being treated for pneumonia. Current antibiotic therapy includes cefepime as well as metronidazole. It is unclear how many days of intravenous antibiotics she will require. I will sign off the case today. Patient will follow up in the office on an outpatient basis. David Lewis DO, PhD CHIARA
[2018-07-31 13:11] LABS: GLYCOMARK(R) 11.6 mcg/mL (7.5-28.4)
--- NOTE | 2018-07-31 15:15 | PN ---
DATE: 07/31/2018 SUBJECTIVE: The patient is seen in room 376, bed 2. The patient is out of bed to chair. The patient reports almost normal bowel movements in the last 24-48 hours. The patient had a couple of bowel movement after the [employer], three bowel movements were documented yesterday. The patient states that she had a small bowel movement today. The patient denies any bleeding. Denies nausea, denies vomiting, denies abdominal pain, denies hemoptysis, denies melena, denies hematochezia. PHYSICAL EXAMINATION: VITAL SIGNS: T-max 98, pulse 81, blood pressure 130/66, respirations 20, O2 sat 95%. HEENT: Head examination normocephalic, atraumatic. HEENT examination shows pale conjunctivae. Anicteric sclerae, dry oral mucosa. No neck rigidity. CHEST: Kyphosis. LUNGS: Shows positive rhonchi bilaterally, left more than the right. CARDIOVASCULAR: S1, S2, regular rhythm. ABDOMEN: Soft. Positive bowel sound. No hepatosplenomegaly noted. GENITALIA: Female. RECTAL: Deferred. EXTREMITY: Shows no pitting edema, no calf tenderness, no Homans' sign. NEUROLOGICAL: The patient is alert, awake, oriented x3. Cranial nerves II through XII intact. Gait examination is independent. VASCULAR: Palpable pulses. MUSCULOSKELETAL: Shows a body mass index of 26. DIAGNOSTICS: On 07/31/2018, WBC 8.6, hemoglobin and hematocrit 8.9 and 28.1, platelets 314. Granulocytes 72% segs. Chemistry shows sodium 144, potassium 3.5, chloride 109, CO2 of 28, anion gap 10, BUN 3, creatinine 0.7, GFR greater than 60, glucose 94, calcium 8.6, phosphorus 4, magnesium 1.9. LFTs are normal. Blood transfusion is 1 unit PRBC. IMPRESSION AND PLAN: 1. Partial small bowel obstruction and terminal ileitis an ileus (resolved). 2. Questionable and possible partial small bowel obstruction and ileus secondary to constipation and fecal retention and fecal stasis. 3. Relative hypotension. 4. Normocytic anemia, etiology undetermined. 5. Leukocytosis. 6. Granulocytosis. 7. Status post packed red blood cell transfusion x1. 8. Hypokalemia. 9. Iron-deficiency anemia. 10. Hypothyroidism with elevated TSH of 5.78. 11. Left lower lobe alveolar infiltrate and pneumonia. 12. Left lower lobe pneumonia. 13. History of Crohn's disease, inflammatory bowel disease with terminal ileal mural thickenings and enhancement. 14. Distal small bowel dilatation. 15. Hepatic steatosis. 16. History of chronic obstructive pulmonary disease. 17. History of anxiety disorder. Plan at this time, the patient has been given potassium supplementation. The patient is to be continued on serial labs monitoring, the patient has been ordered. The patient's current consultation is Gastroenterology and Surgery. The patient's case is referred for Transitional Care Unit for evaluation. The patient has been ordered one more unit of PRBC transfusion today. Current medications: Brovana nebulizer treatment twice a day, Flagyl 500 mg IV every 8, IV Venofer 200 mg IV daily, total of 5 doses. The patient has been ordered potassium supplementation 40 mEq x2 doses. The patient is on IV fluid, Ringer's lactate at 75 mL an hour. Lopressor 50 mg daily, Maxipime 1 g IV every 12, Protonix 40 mg IV daily, Pulmicort nebulizer 0.5 mg every 12. The patient's Reglan discontinued. Singulair 10 mg daily, Synthroid 25 mcg daily, Tylenol p.r.n., Xanax 0.5 mg b.i.d. p.r.n., Xopenex 0.63 mg every 6 hours, Zofran 4 mg IV every 4 hours p.r.n. The patient is on chest PT, incentive spirometry. Regular diet ordered by the Gastroenterology. The patient has been ordered SAW stockings, out of bed. Stool occult blood is still pending, was ordered, but never got done. The patient has been reordered stool occult blood. The patient updated about her condition, diagnoses, test results at length and all questions concerned answered, which she acknowledged and understand. At this time, the patient will be continued on the above diagnostic therapeutic intervention with close GI surgical followup. The patient has been referred for Transitional Care Unit evaluation. At present, the patient will be continued on the above therapeutic intervention, which the patient has been updated about all the details. Dictated and electronically signed, not read. Jayesh Lewis MD [facility] # [id number]
[2018-08-01] MEDS: Levothyroxine 25 MCG TAB PO SCH (05:33)
[2018-08-01] MEDS: metroNIDAZOLE IV 500 mg/100 ml 500 MG/100 ML BAG IVPB SCH (05:33)
[2018-08-01 07:15] LABS: BASO # 0.06 K/mm3 (0.0-2.0); BASO % 0.8 % (0.0-3.0); EOS # 0.5 (0.0-0.7); GRAN # 5.11 (1.4-6.5); GRAN % 65.1 % (50.0-68.0); HEMOGLOBIN 9.3 g/dL (12.0-16.0); LYMPH # 1.4 (1.2-3.4); LYMPH % 17.8 % (22.0-35.0); MEAN CELL VOLUME 89.1 fl (80.0-105.0); MEAN CORPUSCULAR HEMOGLOBIN 28.2 pg (25.0-35.0); MEAN CORPUSCULAR HGB CONC 31.6 g/dl (31.0-37.0); MEAN PLATELET VOLUME 8.9 fl (7.0-11.0); MONO # 0.8 (0.1-0.6); MONO % 10.3 % (1.0-6.0); RBC 3.3 10^6/uL (3.5-6.1); RED CELL DISTRIBUTION WIDTH 14.9 % (11.5-14.5); WHITE BLOOD COUNT 7.9 10^3/ul (4.5-11.0)
[2018-08-01 07:40] LABS: ALB/GLOB RATIO 1.1 (1.1-1.8); ALBUMIN 3.3 g/dL (3.0-4.8); ALT/SGPT 25 U/L (7-56); AST/SGOT 32 U/L (14-36); BILIRUBIN,DIRECT 0.1 mg/dL (0.0-0.4); BLOOD UREA NITROGEN 5 mg/dL (7-21); CALCIUM 8.9 mg/dL (8.4-10.5); GFR NON-AFRICAN AMERICAN > 60
[2018-08-01] MEDS: Budesonide 0.5 mg/2 ml Inhal Susp UD IH SCH (08:00)
[2018-08-01] MEDS: Arformoterol 15 mcg/2 ml Inh Sol IH SCH (08:00)
[2018-08-01] MEDS: Levalbuterol 0.63 MG/3 ML Inhal Soln UD IH SCH ×2 (08:00→13:37)
[2018-08-01] MEDS: Cefepime 1gm in NS 100ml 1 GM/100 ML BAG IVPB SCH (09:24)
[2018-08-01] MEDS: Lactated Ringer's 1,000 ML IV SCH (21:42)
[2018-08-02] MEDS: Levalbuterol 0.63 MG/3 ML Inhal Soln UD IH SCH ×2 (01:25→08:00)
[2018-08-02] MEDS: Levothyroxine 25 MCG TAB PO SCH (06:24)
[2018-08-02] MEDS: Budesonide 0.5 mg/2 ml Inhal Susp UD IH SCH (08:00)
[2018-08-02] MEDS: Arformoterol 15 mcg/2 ml Inh Sol IH SCH (08:00)
[2018-08-02 08:16] VITALS: BP 124/72; PULSE 75; RESP 19; TEMP 98; O2SAT 95
--- NOTE | 2018-08-02 08:26 | PN ---
DATE: 08/02/2018 LOCATION: The patient is in room 376, bed 2. SUBJECTIVE: The patient is a 67-year-old white female. She has history of chronic obstructive lung disease, Crohn's disease. The patient also has past history of asthma, hypothyroidism and hypertension. The patient had infection associated with Crohn's disease and she had anemia. She was admitted for infection, management of Crohn's disease. PHYSICAL EXAMINATION: VITAL SIGNS: The pulse today is 74, blood pressure 120/76, respirations are 18, temperature 97.8. GENERAL: The patient is ambulating. She appears to be comfortable. She had blood transfusion last night. HEENT: The patient's head is normocephalic on examination. NECK: The thyroid is not enlarged. The JVP is flat. LUNGS: Trachea central. Breath sounds are vesicular. No adventitious sounds are heard. HEART: Normal sinus rhythm. S1 and S2 present. No murmurs. ABDOMEN: Soft. Liver and spleen not palpable. No tenderness. [employer]: The patient has no focal deficits. MEDICATIONS: The patient's list of medications consists of Brovana. The patient is on iron supplement. The patient is on metoprolol 50 mg daily, pantoprazole 40 mg daily. The patient is on Pulmicort twice a day, Singulair 10 mg daily, Synthroid 25 mcg daily. The patient also gets Xanax 0.5 mg b.i.d., Xopenex 0.63 mg inhalation therapy every 6 hours. The patient is on Zofran for nausea and she was on Maxipime, the antibiotic. LABORATORY DATA: The patient's blood work, the last hemoglobin yesterday was 9.3. The patient's white count is normal. The patient had a blood transfusion. Her hemoglobin should be repeated, should be higher than 10. The patient's chemistry: The patient has BUN is 5, GFR is good, the patient's total protein is 6.4 and albumin is 3.3. The patient's blood sugar is within normal range. Fructosamine level initially was 186, which is low. ASSESSMENT AND PLAN: The patient's condition is improved. We will follow up. Anna Horowitz MD
[2018-08-02 08:34] LABS: BASO # 0.05 K/mm3 (0.0-2.0); BASO % 0.6 % (0.0-3.0); EOS # 0.5 (0.0-0.7); GRAN # 5.03 (1.4-6.5); HEMOGLOBIN 11.3 g/dL (12.0-16.0); LYMPH # 1.4 (1.2-3.4); LYMPH % 17.9 % (22.0-35.0); MEAN CELL VOLUME 87.4 fl (80.0-105.0); MEAN CORPUSCULAR HEMOGLOBIN 28.5 pg (25.0-35.0); MEAN CORPUSCULAR HGB CONC 32.7 g/dl (31.0-37.0); MEAN PLATELET VOLUME 9.4 fl (7.0-11.0); MONO # 0.9 (0.1-0.6); MONO % 11.5 % (1.0-6.0); RBC 3.96 10^6/uL (3.5-6.1); RED CELL DISTRIBUTION WIDTH 15.7 % (11.5-14.5); WHITE BLOOD COUNT 7.9 10^3/ul (4.5-11.0)
[2018-08-02 08:39] LABS: ALBUMIN 3.5 g/dL (3.0-4.8); BLOOD UREA NITROGEN 6 mg/dL (7-21); CALCIUM 9.2 mg/dL (8.4-10.5); GFR NON-AFRICAN AMERICAN > 60
[2018-08-02 08:40] LABS: ALB/GLOB RATIO 1.1 (1.1-1.8); ALT/SGPT 24 U/L (7-56); AST/SGOT 30 U/L (14-36); BILIRUBIN,DIRECT 0.1 mg/dL (0.0-0.4)
--- NOTE | 2018-08-04 09:56 | PN ---
DATE: 08/01/2018 SUBJECTIVE: The patient is seen in room 376, bed 2. The patient is sitting up in the bed having nebulizer medication treatment. The patient is alert, awake, responsive. The patient denies chest pain. Denies shortness of breath. Denies nausea, denies vomiting, denies diarrhea. Denies melena, denies hematochezia. Denies abdominal pain. Denies nausea, vomiting, diarrhea. PHYSICAL EXAMINATION: VITAL SIGNS: The patient's T-max is 98.7, pulse 64, 68, 74, respirations 18-20, blood pressure is 110/74, 108/64, O2 sat mid 90% to high 90%. HEAD: Normocephalic, atraumatic. HEENT examination shows pale conjunctivae. Anicteric sclerae, dry oral mucosa. No neck rigidity. CHEST: Kyphosis. LUNGS: Shows positive rhonchi, left more than the right. Occasional fine crepitus, left more than the right. CARDIOVASCULAR: S1, S2, regular rhythm. ABDOMEN: Soft. Positive bowel sounds. No palpable hepatosplenomegaly. No guarding. No rigidity. No rebound tenderness. GENITALIA: Female. RECTAL: Deferred. EXTREMITIES: Shows no pitting edema, no calf tenderness. No Homans sign. The patient has missing SAW stockings. MUSCULOSKELETAL: Shows body mass index as per the [employer] summary page. DIAGNOSTICS: From 08/01/2018, hemoglobin/hematocrit is still low at 9.3, 29, 28. Platelets are normal. Potassium is corrected. CMP, LFTs are normal. Magnesium, phosphorus are within normal limit from 08/01/2018. The patient is seen by Gastroenterology. Their recommendations were noted. IMPRESSION AND PLAN: 1. Partial small bowel obstruction versus ileus (resolved). 2. Acute exacerbation of Crohn disease and terminal ileitis. 3. Asymptomatic hypotension and hypovolemia and dehydration. 4. Iron-deficiency normocytic anemia. 5. Status post packed red blood cell transfusion x1. 6. History of chronic obstructive pulmonary disease. 7. Hypothyroidism. 8. Hypokalemia. 9. Left lower lobe alveolar infiltrate and community-acquired pneumonia. 10. History of anxiety disorder. 11. History of Crohn disease and inflammatory bowel disease. 12. Deconditioning. PLAN: At this time, the patient will be given another unit of PRBC today to keep hemoglobin around 10 g. The patient will be continued on nebulizer treatment. The patient will be continued on chest PT. The patient will be continued on broad-spectrum IV antibiotics. The patient will be continued on nebulizer medication. The patient will complete the IV Venofer treatment x5 doses. The patient will be followed by GI and Surgery. Recommendations from GI and Surgery was noted, explained to the patient. At present, the patient will be monitored very closely. Repeat lab work for the mornings are ordered. If the patient's hemoglobin/hematocrit and other objective/subjective data stays stable, the patient will be considered for discharge soon. The patient has been updated about her condition, diagnosis, treatment plan and further management was discussed and explained to the patient in layman's language. All questions concerned answered, which she acknowledged as understood. Dictated and electronically signed, not read. Jayesh Lewis MD
== END 2018-08-02 14:05 | disposition home or self-care (01) | DRG 388 ==
LOC: ED 18:13 → ERH 07-29 02:41 → 3RSO 07-29 03:49
PROVIDERS: ADMIT Internal Medicine; ATTEND Internal Medicine
PROC: 30233N1 Transfusion of Nonautologous Red Blood Cells into Peripheral Vein, Percutaneous Approach (ICD-10-PCS; principal; 2018-07-29)
DX: K56.41 Fecal impaction (principal); J18.9 Pneumonia, unspecified organism; K56.7 Ileus, unspecified; J44.0 Chronic obstructive pulmonary disease with (acute) lower respiratory infection; K21.9 Gastro-esophageal reflux disease without esophagitis; I10 Essential (primary) hypertension; D50.9 Iron deficiency anemia, unspecified; E87.6 Hypokalemia; K58.9 Irritable bowel syndrome, unspecified; E03.9 Hypothyroidism, unspecified; I95.9 Hypotension, unspecified; K76.0 Fatty (change of) liver, not elsewhere classified; M19.90 Unspecified osteoarthritis, unspecified site; F41.9 Anxiety disorder, unspecified; R63.0 Anorexia; Z87.891 Personal history of nicotine dependence

== ENCOUNTER 2018-12-08 06:13 | Day surgery (SDC) | payer MEDICARE ==
[2018-12-03 10:25] VITALS: BMI 23.5
[2018-12-08] MEDS ORDERED: Propofol 10 mg/ml Inj (20 ML) ONE ×2 (08:10→08:24)
[2018-12-08] MEDS ORDERED: Sodium Chloride 0.9% 1,000 ML IV SCH (09:00)
[2018-12-08 09:57] VITALS: TEMP 97.8
[2018-12-08 10:16] VITALS: BP 117/64; PULSE 61; RESP 15; O2SAT 95
== END 2018-12-08 10:44 | disposition home or self-care (01) ==
LOC: ENDO 06:13
PROVIDERS: ATTEND Internal Medicine Gastroenterology
DX: K52.9 Noninfective gastroenteritis and colitis, unspecified (principal); K57.30 Diverticulosis of large intestine without perforation or abscess without bleeding; K64.9 Unspecified hemorrhoids; J45.909 Unspecified asthma, uncomplicated
CPT/HCPCS: 45380; 88305; J2704; J7030

== ENCOUNTER 2019-01-05 06:47 | Day surgery (SDC) | payer MEDICARE ==
[2018-12-29 10:11] VITALS: BMI 23.0
[2019-01-05 07:35] VITALS: RESP 16
[2019-01-05] MEDS ORDERED: Propofol 10 mg/ml Inj (20 ML) ONE (08:21)
[2019-01-05 09:20] VITALS: O2SAT 100
[2019-01-05] MEDS ORDERED: Sodium Chloride 0.9% 1,000 ML IV SCH (09:45)
[2019-01-05 10:11] VITALS: BP 105/65
[2019-01-05 10:19] VITALS: PULSE 61; TEMP 98
== END 2019-01-05 10:45 | disposition home or self-care (01) ==
LOC: ENDO 06:47
PROVIDERS: ATTEND Internal Medicine Gastroenterology
DX: K21.0 Gastro-esophageal reflux disease with esophagitis (principal); R10.9 Unspecified abdominal pain; K31.84 Gastroparesis; K26.9 Duodenal ulcer, unspecified as acute or chronic, without hemorrhage or perforation; K29.50 Unspecified chronic gastritis without bleeding; I48.91 Unspecified atrial fibrillation; I10 Essential (primary) hypertension; F41.9 Anxiety disorder, unspecified; J45.909 Unspecified asthma, uncomplicated; I34.1 Nonrheumatic mitral (valve) prolapse
CPT/HCPCS: 43239; 88305; 88342; J2001; J2704; J7030; J7040